=== PATIENT | male | born 1945 | race Caucasian/White ===

== ENCOUNTER 2017-07-15 19:00 | Observation (INO) | payer MEDICARE ==
[2017-07-15 20:10] LABS: Hematocrit 36 % (42-52); Hemoglobin 12.2 g/dl (14.0-18.0); Mean Corpuscular HGB Conc 34 g/dl (31-36); Mean Corpuscular Hemoglobin 30 pg (27-31); Mean Corpuscular Volume 89 fL (80-94); Mean Platelet Volume 9 um3 (7.4-10.4); Red Blood Count 4.05 10^6/ul (4.0-5.4); Red Cell Distribution Width 16 % (10.5-15); White Blood Count 7.1 10^3/ul (3.5-10.8)
[2017-07-15 20:39] LABS: Urine Bacteria Absent (Absent); Urine Bilirubin Negative (Negative); Urine Glucose 1+(50 mg/dL) (Negative); Urine Nitrite Negative (Negative)
[2017-07-15 20:43] LABS: BUN/Creatinine Ratio 18.5 (8-20); Calcium 8.9 mg/dL (8.6-10.3); EGFR African American 86.7 (>60); EGFR Non-African American 67.4 (>60); Globulin 2.7 g/dL (2-4); Potassium 4.1 mmol/L (3.5-5.0); Total Bilirubin 0.3 mg/dL (0.2-1.0); Total Protein 6.7 g/dL (6.4-8.9)
--- NOTE | 2017-07-15 21:02 | RAD ---
INDICATION: Slurred speech, confusion and fall COMPARISON: None. TECHNIQUE: Contiguous axial sections of the brain were obtained from the skull base to the vertex without contrast. FINDINGS: The ventricles, cisterns and sulci are within normal limits. There is mild periventricular and subcortical white matter hypoattenuation most consistent with chronic microvascular disease. At the left chaudhry radiata (image 19 of 32) adjacent to the left ventricle there is a 6 mm hypoattenuating focus. Otherwise the hernandez-white matter differentiation is adequately maintained and there is no sulcal effacement. No significant focal abnormality or mass effect is present. There is no evidence for intracranial hemorrhage. There is coarse atherosclerotic calcification of the left greater than right vertebral arteries as well as the bilateral petrous carotid arteries. No significant focal osseous abnormality is present. The visualized portion of the paranasal sinuses and mastoid air cells appear clear. IMPRESSION: CT findings are consistent with mild microvascular disease. A 6 mm hypoattenuating focus at the left chaudhry radiata could represent an age indeterminant focal infarction. The patient is exhibiting focal neurologic deficits further characterization can be made with MRI of the brain.
--- NOTE | 2017-07-15 21:17 | ED ---
Geno Valles Thomas, scribed for Edelmira Hernandez MD on 07/15/17 at 1936 . Neurological HPI - HPI Summary HPI Summary: The pt is a 71 y/o M presenting to the ED s/p an accidental fall that occurred today at 15:30. The patient was hammering a nail when he lost his balance and fell. The patient did not strike his head on the floor. Per , after the fall the patient was confused. Per , the patient seemed to have trouble articulating words. In the ED, the patient denies any pain. He is on Coumadin. PMHx includes A-Fib. - History of Current Complaint Chief Complaint: EDAltMentalStatus Stated Complaint: FALL/SLURRED SPEECH/HIGH BLOOD PRESSURE Time Seen by Provider: 07/15/17 19:21 Hx Obtained From: Patient Onset/Duration: Started hours ago - today at 15:30, Resolved Timing: Constant Current Severity: None Pain Intensity: 0 Pain Scale Used: 0-10 Numeric Character: Confusion Aggravating: Nothing Alleviating: Spontanious Resolution Associated Signs and Symptoms: Positive: Nothing - Aphasia, confusion, accidental fall; NEGATIVE: head trauma Related Hx: Coumadin - Allergy/Home Medications Allergies/Adverse Reactions: Allergies Allergy/AdvReac Type Severity Reaction Status Date / Time Codeine Allergy Rash Verified 07/15/17 19:08 PMH/Surg Hx/FS Hx/Imm Hx Previously Healthy: No Endocrine/Hematology History: Reports: Hx Diabetes Cardiovascular History: Reports: Hx Coronary Artery Disease Infectious Disease History: No Infectious Disease History: Denies: Traveled Outside the [place] in Last 30 Days - Family History Known Family History: Positive: Other - CVA - Social History Lives: With Family Alcohol Use: Occasionally Hx Tobacco Use: No Smoking Status (MU): Never Smoked Tobacco Review of Systems Negative: Fever Neurological: Other - Confusion, aphasia; NEGATIVE: head trauma All Other Systems Reviewed And Are Negative: Yes Physical Exam - Summary Physical Exam Summary: VITAL SIGNS: Reviewed. GENERAL: ~Patient is a well-developed and nourished male who is lying comfortable in the stretcher. Patient is not in any acute respiratory distress. HEAD AND FACE: No signs of trauma. No ecchymosis, hematomas or skull depressions. No sinus tenderness. EYES: PERRLA, EOMI x 2, No injected conjunctiva, no nystagmus. EARS: Hearing grossly intact. Ear canals and tympanic membranes are within normal limits. MOUTH: Oropharynx within normal limits. NECK: Supple, trachea is midline, no adenopathy, no JVD, no carotid bruit, no c- spine tenderness, neck with full ROM. CHEST: Symmetric, no tenderness at palpation LUNGS: Clear to auscultation bilaterally. No wheezing or crackles. CVS: Regular rate and rhythm. There is a 2/6 systolic murmur over the base. S1 and S2 present, no gallops appreciated. ABDOMEN: Soft, non-tender. No signs of distention. No rebound no guarding, and no masses palpated. Bowel sounds are normal. EXTREMITIES: FROM in all major joints, no edema, no cyanosis or clubbing. NEURO: Alert and oriented x 3. No acute neurological deficits. Speech is normal and follows commands. Coordination is normal in finger-nose test. No dysmetria. No nystagmus. SKIN: Dry and warm Triage Information Reviewed: Yes Vital Signs On Initial Exam: Initial Vitals Temp Pulse Resp BP Pulse Ox 98.5 F 64 18 173/92 99 07/15/17 19:04 07/15/17 19:04 07/15/17 19:04 07/15/17 19:04 07/15/17 19:04 Vital Signs Reviewed: Yes Diagnostics - Vital Signs Vital Signs Temp Pulse Resp BP Pulse Ox 07/15/17 19:04 98.5 F 64 18 173/92 99 - Laboratory Result Diagrams: 07/15/17 20:00 07/15/17 20:00 Lab Statement: Any lab studies that have been ordered have been reviewed, and results considered in the medical decision making process. - CT CT Brain CT Interpretation: Positive (See Comments) - CT findings are consistent with mild microvascular disease. A 6 mm hypoattenuating focus at the left chaudhry radiata could represent an age indeterminant focal infarction. The patient is exhibiting focal neurologic deficits further characterization can be made with MRI of the brain. ED physician has reviewed this report and agrees. GCS 15. CT Interpretation Completed By: Radiologist - EKG 20:09 Cardiac Rate: Bradycardia EKG Interpretation: 59 BPM. Normal axis. Noraml intervals. Nonspecific ST T- waves changes. Re-Evaluation - Re-Evaluation First Eval Re-Evaluation Time: 21:11 Change: Unchanged Comment: I informed the patient of the CT results and the plans for admission. Course/Dx - Course Assessment/Plan: The pt is a 71 y/o M presenting to the ED s/p an accidental fall that occurred today at 15:30. The patient was hammering a nail when he lost his balance and fell. The patient did not strike his head on the floor. Per , after the fall the patient was confused. Per , the patient seemed to have trouble articulating words. EKG and bloodwork were obtained in the ED. CT brain shows CT findings are consistent with mild microvascular disease. A 6 mm hypoattenuating focus at the left chaudhry radiata could represent an age indeterminant focal infarction. The patient has been stable in the emergency department. The neurological exam is unchanged from the original exam. The patient is will be admitted for a TIA. - Diagnoses Provider Diagnoses: TIA (transient ischemic attack) - Physician Notifications Discussed Care Of Patient With: Ashok Armendariz Time Discussed With Above Provider: 21:17 Instructed by Provider To: Admit As Inpatient Discharge - Discharge Plan Condition: Stable Disposition: ADMITTED TO [facility] Referrals: Can Ku MD [Primary Care Provider] - The documentation as recorded by the Geno cardenas Thomas accurately reflects the service I personally performed and the decisions made by me, Edelmira Hernandez MD.
[2017-07-15] MEDS ORDERED: Ondansetron INJ* 2 MG/ML VIAL IV PRN (21:47)
[2017-07-15] MEDS ORDERED: Acetaminophen TAB* 325 MG PO PRN (21:47)
[2017-07-15] MEDS ORDERED: Dextrose 50% Syringe 50 ML* 25 GM/50 ML SYRINGE IV PUSH PRN (21:49)
[2017-07-15] MEDS ORDERED: hydrALAZINE IV* 20 MG/ML VIAL IV SLOW PU PRN (21:58)
[2017-07-15] MEDS ORDERED: Warfarin TAB(*) 4 MG PO SCH (22:00)
[2017-07-15] MEDS ORDERED: Iodixanol* (CONTRAST) 320 MG/ML 100 ML SDV IV ONE (22:01)
--- NOTE | 2017-07-15 23:53 | HP ---
CC: Darlene [place] * HISTORY AND PHYSICAL: DATE OF ADMISSION: 07/15/17 PRIMARY CARE PROVIDER: Darlene [place]. ATTENDING PHYSICIAN WHILE IN THE HOSPITAL: Ashok Armendariz MD * (report dictated by Govind Sampson NP) CHIEF COMPLAINT: Difficulty with speech. CONSULTING NEUROLOGIST: Dr. Celis. HISTORY OF PRESENT ILLNESS: Mr. Encinas is a 71-year-old male patient, he has a history of CAD, aortic stenosis, history of diabetes, BPH, and also carries a history of atrial fibrillation. He comes into the emergency department today stating that he was working outside with his , he was hammering in a nail, he was bending over to do this and when he came upright, he started having difficulty with his speech. He did not know what he said, the words were on the tip of his tongue, he could not get them out. He knew this was happening. The states that he was saying several different languages and they were not making senses. He was not speaking in correct context. She did not notice a facial droop or weakness on one side. She denied him having any slurred speech. She says the speech was clear, it was nonsensical. The patient said that he did not have any visual changes. There were no reports again of that facial droop or left to right-sided weakness and he does state that over the last couple of days though, he has been having more difficulty with his gait, it has been more unsteady. He says the symptoms are now resolved. He lied down. When he came to, the symptoms had gone, but the was concerned that this could be something more serious, so she decided to bring him into the ER. There has been no reports of fevers or chills. He did in November of this year have aortic valve replacement due to aortic stenosis and a CABG for coronary artery disease. He is on warfarin for AFib and he has a history of diabetes and BPH. He was evaluated in the ED, there was concern for a TIA and we were asked to evaluate for admission. PAST MEDICAL HISTORY: Significant for: 1. CAD. 2. Aortic stenosis. 3. Diabetes. 4. BPH. 5. AFib. PAST SURGICAL HISTORY: He has an aortic valve replacement which is bovine and a CABG. MEDICATIONS: Home medications according to the list that he provided include: 1. Lisinopril 20 mg p.o. b.i.d. 2. Fluticasone 2 sprays both nares at bedtime. 3. Metformin 1000 mg p.o. b.i.d. 4. B12 of 1000 mcg p.o. daily. 5. Vitamin D3 of 2000 units p.o. daily. 6. Glipizide 5 mg p.o. daily. 7. Flomax 0.4 mg p.o. daily. 8. Celexa 20 mg daily. 9. Warfarin 4 mg on Tuesdays and . 10. Warfarin 8 mg on Friday, Friday, Friday, Friday, and Friday. 11. Lipitor 40 mg daily. 12. Lopressor 5 mg p.o. b.i.d. 13. Avodart 0.5 mg p.o. daily. 14. Aspirin 81 mg daily. ALLERGIES TO MEDICATIONS: Include CODEINE. FAMILY HISTORY: Mother had a history of CVA. Father was an alcoholic. SOCIAL HISTORY: He is a former smoker. He rarely drinks alcohol. Surrogate decision maker is his , Mariam. REVIEW OF SYSTEMS: There is no documented fever. He denied having any significant weight change. There was no double vision. No ear discharge, no rhinorrhea, no sore throat, and no thyroid enlargement. Denied having any chest pain. No orthopnea or nocturnal dyspnea. There is no abdominal pain. No nausea, no vomiting, no dysuria, no frequency, no seizure, no loss of consciousness, no pruritus, and no skin ulcerations. Review of 14 systems completed and all others negative. PHYSICAL EXAMINATION GENERAL: At this time Mr. Encinas is a 71-year-old male patient, he is sitting in the ER stretcher. He does not appear to be in any acute distress. VITAL SIGNS: Blood pressure 175/121 with a pulse of 58, respirations 18, O2 sat 97%, and his temperature was 98.5. HEENT: Head atraumatic and normocephalic. Eyes; EOMs are intact. Sclerae anicteric and not pale. NECK: Supple. Throat; oral mucosa appears to be moist. No oropharyngeal erythema. LUNGS: Clear to auscultation bilaterally. No wheezes, rales, or rhonchi. HEART: Sounds S1 and S2. Regular rate and rhythm. No murmurs, rubs, or gallops. ABDOMEN: Soft, flat, and nontender. Bowel sounds present. EXTREMITIES: Pulses were 2+ throughout. He is able to move all 4 extremities with 5/5 strength. NEUROLOGIC: He is awake, he is alert. Cranial nerves II through XII are intact. Xofndq-uh-jakd intact bilaterally. Hzbd-nz-sshq intact bilaterally. Speech was clear. Tongue was midline. He had 5/5 strength throughout. He had no gross focal deficits. He was awake, alert, and oriented x3. SKIN: Intact. LABORATORY DATA/DIAGNOSTIC STUDIES: Today reveal a WBC of 7.1, RBC of 4.05, hemoglobin of 12.2, hematocrit 36, platelet count 228,000. His INR was 2.70, PTT of 42.1. Sodium 139, potassium 4.1, chloride of 106, bicarb 28, BUN 20, creatinine 1.08, glucose 209, calcium 8.9, total bili 0.3, AST 15, ALT 11, alk phos 54, albumin of 4.0. He had trace ketones, trace leukocyte esterase, squamous epithelial cells were present, calcium oxalate crystals present, hyaline casts present, 1+ glucose. He had a brain CT obtained today which impression read: CT findings most consistent with mild microvascular disease, a 6 mm hypoattenuating focus of the left chaudhry radiata, could represent an age indeterminate focal infarct. The patient focal neurologic deficits. Further characteristic could be made with MRI of the brain. He had an EKG obtained today as well which showed a sinus bradycardia, rate of 59. No ST elevations. He had diffuse T-wave flattening. No previous EKG for comparison. Old medical records were reviewed. ASSESSMENT AND PLAN: Mr. Encinas is a 71-year-old male patient coming into the emergency department today with complaint of trouble with speech that lasted an hour that has now resolved. He will be admitted under observation status for: 1. Transient ischemic attack. Again, CT did show possible old stroke. We will get an MRI to further characterize this. I will get Dr. Celis involved. We will continue his warfarin and his aspirin that he has been taking along with statin therapy. We will get neuro checks every 2 hours, get a CTA of the head and neck. In addition to this, we also will get an echo with bubble study and place the patient on telemetry. He appears to be in sinus rhythm currently. 2. Coronary artery disease. Continue aspirin, statin, and beta anyi therapy. 3. Hypertension. Blood pressure right now is in the 190s. I would like to try to get that down to less than 180. I am going to give him some hydralazine p.r.n. and will continue his Lopressor. I am going to hold the lisinopril for the time being. 4. Aortic stenosis. Again at this point he had an aortic valve replacement. He will follow with his principal technical specialist. 5. Diabetes. He will be on lispro sliding scale. 6. Benign prostatic hypertrophy. Continue his Avodart and Flomax. 7. Atrial fibrillation. He is in sinus rhythm. Will continue his Coumadin as prescribed. 8. Code status full code. 9. Fluids, electrolytes, and nutrition. He can have a consistent carb diet. 10. DVT prophylaxis. He will continue the warfarin. TIME SEEN: On admission 60 minutes, greater than half the time spent face-to- face with the patient obtaining my history and physical, other half the time spent going over the plan of care with the patient and implementing the plan of care. I discussed plan of care with my attending, Dr. Armendariz; he is in agreement. GOVIND SAMPSON NP [id number]/CPS #: [id number] MTDD
[2017-07-16 05:09] LABS: Hematocrit 34 % (42-52); Hemoglobin 11.7 g/dl (14.0-18.0); Mean Corpuscular HGB Conc 34 g/dl (31-36); Mean Corpuscular Hemoglobin 30 pg (27-31); Mean Corpuscular Volume 88 fL (80-94); Mean Platelet Volume 8 um3 (7.4-10.4); Red Cell Distribution Width 16 % (10.5-15)
[2017-07-16 05:26] LABS: BUN/Creatinine Ratio 20.2 (8-20); Calcium 8.6 mg/dL (8.6-10.3); EGFR African American 108.4 (>60); EGFR Non-African American 84.3 (>60); HDL Cholesterol 36.3 mg/dL; Potassium 3.8 mmol/L (3.5-5.0)
[2017-07-16] MEDS: Insulin LISPRO* 1 UNITS UNIT SUBCUT SCH ×2 (07:19→12:02)
--- NOTE | 2017-07-16 08:23 | RAD ---
INDICATION: TIA COMPARISON: CT brain same date TECHNIQUE: Axial source images were acquired with coronal and sagittal reconstructions. CT angiographic technique was utilized with injection of 80 mL Visipaque 320. FINDINGS: Aortic arch: There are no CT angiogram abnormalities of the arch or the great vessels arising from the arch. Right carotid: The internal carotid artery, carotid bifurcation, extracranial portions of the internal carotid artery, carotid artery at the skull base, carotid siphon, and carotid termination appear patent. There are intimal calcifications of the carotid bifurcation, external portion of internal carotid artery, and carotid artery at the skull base to include the carotid siphon. There is an estimated 30% diameter stenosis near the origin the right internal carotid artery. Left carotid:The internal carotid artery, carotid bifurcation, extracranial portions of the internal carotid artery, carotid artery at the skull base, carotid siphon, and carotid termination appear patent. There are intimal calcifications of the carotid bifurcation, external portion of the internal carotid artery, and carotid artery at the skull base to include the carotid siphon. There is a mild origin stenosis of the left internal carotid artery in the 40-50% diameter range and a second stenosis 1.5 cm above the origin of the internal carotid artery also estimated to be 40-50%. Right middle and anterior cerebral arteries: There are no significant CT angiographic abnormalities of the middle or anterior cerebral arteries. Left middle and anterior cerebral arteries: There are no significant CT angiographic abnormalities of the middle or anterior cerebral arteries Right vertebral: The CT angiographic appearance of the vertebral artery is patent. There are intimal calcifications. Left vertebral: The CT angiographic appearance of the vertebral artery is patent. There are intimal calcifications. Basilar artery: The basilar artery and basilar tip appear normal. Posterior cerebral arteries: The distal distribution of the right posterior cerebral arteries normal. There are tendon, high-grade stenoses of the origin left posterior cerebral artery estimated to be in the 75% diameter range. The distribution of the posterior cerebral arteries otherwise normal. [place] of [place]: The CT angiographic appearance of the elem of [place] is normal. Source images show no evidence of mass or adenopathy within the neck. There are no focal brain parenchymal abnormalities or abnormal areas of enhancement. There is sternotomy. The lung apices are essentially clear IMPRESSION: 1. There are atherosclerotic changes involving both the anterior and posterior circulation with intimal calcifications and regularities. 2. Carotid bifurcation disease is noted above but there is no hemodynamically significant stenosis. 3. 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 CPT II Codes: 3100F PQRS
[2017-07-16] MEDS ORDERED: Tamsulosin CAP* 0.4 MG PO SCH (09:00)
[2017-07-16] MEDS ORDERED: Finasteride TAB* 5 MG PO SCH (09:00)
[2017-07-16] MEDS ORDERED: Metoprolol Tartrate TAB* 50 mg PO SCH (09:00)
[2017-07-16] MEDS ORDERED: Aspirin EC Low Dose* 81 MG TAB.EC PO SCH (09:00)
[2017-07-16] MEDS ORDERED: Citalopram TAB* 20 MG PO SCH (09:00)
[2017-07-16 10:28] LABS: TSH (Thyroid Stimulating Horm) 14.17 mcIU/mL (0.34-5.60)
[2017-07-16] MEDS ORDERED: Perflutren Lipid Microsphere* 3 ML VIAL ONE (10:28)
[2017-07-16 10:34] LABS: Free T4 0.56 ng/dL (0.61-1.12)
--- NOTE | 2017-07-16 11:42 | RAD ---
Indication: Transient ischemic attack. Sagittal and axial T1, axial T2, FLAIR, diffusion and susceptibility weighted images of the brain were obtained. Correlation is made with a CT of the brain done on 1117. Ventricular structures are midline. No midline shift is noted. The extra-axial spaces are unremarkable. There is central and cortical atrophy noted. No restriction of diffusion is noted. Periventricular signal abnormalities are noted scattered throughout the deep white matter. These may be oriented along the pericallosal radiation. These are nonspecific findings but may represent chronic ischemic White matter change although the possibility of a demyelinating process is not excluded. Clinical correlation is suggested. No evidence of susceptibility artifact from hemosiderin deposits are noted. Paranasal sinuses are clear. Mastoid air cells are otherwise unremarkable. IMPRESSION: Atrophy. Periventricular signal abnormalities which are oriented along the pericallosal fibers. These are nonspecific but may represent demyelinating process although small vessel ischemic disease is not excluded. No restriction of diffusion is noted to suggest acute infarct.
--- NOTE | 2017-07-16 12:11 | CONS ---
CC: Darlene [place] * CONSULTATION NOTE: DATE OF CONSULT: 07/16/17 CURRENT LOCATION: Room 433, bed 1. PRIMARY CARE PROVIDER: aDrlene Hamilton [place] REASON FOR CONSULTATION: Balance difficulty and speech changes. HISTORY OF PRESENT ILLNESS: Mr. Encinas is a 71-year-old gentleman from [place] who has a history of hypertension, hyperlipidemia, type 2 diabetes, atrial fibrillation, has a history of aortic stenosis and coronary artery disease, status post aortic valve replacement in November of 2016. At that time, he also had a 3-vessel CABG. He has been doing well. He had a bovine valve placed, but has been on Coumadin because of a history of paroxysmal atrial fibrillation. He states that he has not had any palpitation since the surgery. The surgery was uncomplicated. He has done well. He notes that since the surgery, he has had some difficulty with his balance at times, he will fall to one side or the other, but otherwise has no lasting effects. The balance issues are not associated with any lightheadedness or palpitations. Yesterday, he was outside working on his trailer when he suddenly fell forward. He did not hit his head, sustained no injuries. He had some weakness that he said was all over, not focal when he got up. His told him that his speech was garbled at times. He was speaking [place], but he was not making sense. This lasted for approximately 20 minutes and then resolved spontaneously by the time he came to the ER several hours later. The symptoms had resolved. He noted in the last week or so, headache in the left forehead that has been mild in nature, yesterday he had the same headache, but otherwise noted no vision changes, no hearing loss, no facial droop reported, no numbness or tingling in his face, no focal numbness, tingling, weakness in his arms or legs. He noted no palpitations or chest pain at the time. He has had no recent illnesses. No fevers, chills, nausea, vomiting, diarrhea, or constipation. He has otherwise been in his usual state of health. He was brought to the ER. CT of the head showed no acute bleeding. He does have some chronic white matter changes and there was a 6- mm hypoattenuating focus in the left chaudhry radiata, which represents an age- indeterminate focal infarct. MRI of the brain is pending. CT angiogram of the head is pending. Overnight, he has had no new issues. He feels fine. He is sitting and eating breakfast and has no complaints. PAST MEDICAL HISTORY: As noted. PAST SURGICAL HISTORY: Includes a right finger injury with skin graft when he was 16 and then the CABG and open heart surgery for aortic valve replacement in November of this year. MEDICATIONS AT HOME: 1. Lisinopril 20 mg b.i.d. 2. Fluticasone nasal spray. 3. Metformin 1000 mg p.o. b.i.d. 4. Vitamin B12 1000 mcg daily. 5. Vitamin D3 2000 units daily. 6. Glipizide 5 mg p.o. b.i.d. 7. Flomax 0.4 mg p.o. daily. 8. Citalopram 20 mg p.o. daily. 9. Warfarin 4 mg Friday and ; 8 mg Friday, Friday, Friday, Friday, Friday. 10. Lipitor 40 mg. 11. Metoprolol 50 mg p.o. b.i.d. 12. Aspirin 81 mg every day. 13. Dutasteride 0.4 mg p.o. daily. ALLERGIES: To CODEINE. FAMILY HISTORY: He had one sister out of 4 did had a stroke in the 30s. There is no family history of any clotting or bleeding disorders. He has had multiple family members with strokes in the past. 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 Lives with his . Smoked, but quit back in the . Occasionally has a drink; he has had one beer this year, not a heavy drinker. He denies any drug use. States that he is compliant with his medications. PHYSICAL EXAMINATION: Vital Signs: Temp is 98.2, pulse rate is 63, respiratory rate is 16, pulse ox is 98%, blood pressures have been in the high up 191 to 150s over 70s to 90s with the high of 121 at one reading last night. In general, he is a well-nourished, well-developed gentleman in no acute distress. He is sitting up on the side of his bed, eating breakfast. He is pleasant, well dressed, well groomed. HEENT: He is normocephalic, atraumatic. Sclerae are anicteric. Mucous membranes are moist. Oropharynx is clear. Nares are patent. Neck is supple. No thyromegaly. No carotid bruits. No meningismus. Chest: Clear to auscultation bilaterally. Cardiovascular: Regular rate and rhythm without murmurs. Abdomen: Nontender, nondistended. Extremities: No clubbing, cyanosis, or edema. Skin: Warm and dry without lesions. Neurologic Exam: He is awake, alert, and oriented x3. His speech is fluent. He is a [place] accent. His memory is intact to recent and remote events. There is no dysarthria noted. Cranial nerves II through XII. Pupils are equal, round, and reactive to light. Extraocular muscles are intact. Visual ace are full. Face sensation is intact. Face is with a very subtle left lower facial droop. His hearing is intact bilaterally. Tongue is midline. Palate raises symmetrically. Sternocleidomastoid and trapezius are intact. Motor Exam: He spontaneously moving all extremities antigravity 5/5 throughout. Tone and bulk are both normal. There is no drift. DTRs are 1+ and symmetric in the upper and lower extremities with equivocal Babinski's. Sensation is intact to light touch and pinprick throughout. No focal deficits. Finger-to- nose, rapid alternating movements and heel to kapoor are all normal without ataxia. He does have a very mild intention tremor in the upper extremities bilaterally. His Romberg is negative. Gait: He is walking without difficulty. Good stride. Good arm swing. DIAGNOSTIC STUDIES/LAB DATA: Lab work includes glucose of 121 this morning. Complete metabolic yesterday with glucose of 209, otherwise normal. Complete metabolic profile this morning with a BUN and creatinine of 20.2, glucose of 104. His CBC with diff, hemoglobin of 11.7, hematocrit of 34, INR yesterday of 2.70, INR this morning of 3.26, PTT of 43.1. Urine showed trace leukocyte esterase, absent bacteria, negative nitrite, 1+ glucose, hyaline casts present, calcium oxalate crystals present. ASSESSMENT AND PLAN: Mr. Encinas is a 71-year-old gentleman with a history of coronary artery disease and aortic stenosis, status post aortic valve replacement with a Bovine valve and 3-vessel coronary artery bypass graft in November of 2016. He has a history of atrial fibrillation. He has been Coumadin for that. He remains on Coumadin for the paroxysmal atrial fibrillation, has a history of hypertension, hyperlipidemia, diabetes, who presents to the hospital with acute onset of some what sounds like expressive aphasia, possibly some dysarthria as well, lasting for about 20 minutes and resolved, no further symptoms since admission. CT of the head shows possibility of a very small chronic versus acute infarct and some white matter disease. Otherwise, negative for any bleeding. CT angiogram pending. Echocardiogram pending. MRI pending. We will continue with his transient ischemic attack/stroke workup. Follow up his studies today. I will continue his Coumadin, unchanged for now. His goal INR per cardiovascular recommendations. Continue his statin with a goal LDL less than 70, his current LDL is 81. We will increase his dose. Continue his aspirin as well. Continue diabetes control and blood pressure control. He is a nonsmoker. We will monitor on telemetry for any evidence of arrhythmia. If his studies are normal, then he can likely be discharged today and I will follow him up in clinic in 4 to 6 weeks. We will follow up later today and make further recommendation if necessary. Thank you for the opportunity to participate in his care. [id number]/[facility] #: [id number] CARMELO
--- NOTE | 2017-07-16 12:20 | ECHO ---
Patient: NUNU NIEVES V [facility] Rec#: [id number] : 1945 Date: 07/16/2017 Age: 71y Weight: kg / NaN lbs Sex: M Room#: 433 Admit Date#: 07/15/2017 Type: Inpatient Referring: Govind Sampson NP Reading: Jossy Stanley MD Rn Urology: Shanell Gray [facility] Transthoracic Echocardiogram Indication: TIA BP: 166/77 HR: 68 Rhythm: NSR Findings History: CAD s/p CABGx3, s/p AV replacement( bovine),DM,a-fib,BPH. Technical Comments: The study is technically difficult. Definity used to enhance images. Left Ventricle: The left ventricular chamber size is decreased. Moderate concentric left ventricular hypertrophy is observed. There is normal left ventricular systolic function. The estimated ejection fraction is 55-60%. Ventricular septal wall motion has a post-operative appearance. The assessment of diastolic function is non-diagnostic. Left Atrium: The left atrium is moderately dilated. Right Ventricle: The right ventricular cavity size is normal. The right ventricular global systolic function is normal. Right Atrium: A patent foramen ovale is visualized. A patent foramen ovale is demonstrated by agitated contrast. With valsalva immediate and multiple bubbles cross. Aortic Valve: There is no evidence of aortic regurgitation. There is no evidence of aortic stenosis. The mean gradient of the aortic valve is 14.95 mmHg. The aortic valve area, by VTI's, is calculated at 1.5 cm2. Highest aortic valve velocity was acquired with Pedoff in apical position. A bovine bio-prosthetic aortic valve is present. The prosthetic aortic valve leaflets are normal. Mitral Valve: The mitral valve leaflets are mildly thickened. There is mild mitral regurgitation. There is no evidence of mitral stenosis. Tricuspid Valve: The tricuspid valve leaflets are normal. There is mild tricuspid regurgitation. There is evidence of mild pulmonary hypertension. There is no tricuspid stenosis. Pulmonic Valve: The pulmonic valve appears normal. There is trace to mild pulmonic regurgitation. There is no pulmonic stenosis. Pericardium: A pericardial fat pad is visualized. Aorta: There is mild dilatation of the ascending aorta. There is no dilatation of the aortic arch. There is no dilation of the aortic root. Pulmonary Artery: The main pulmonary artery appears normal. Venous: The venous system is not well visualized. Contrast: Definity was used to optimize study. 3 ml used. Intravenous contrast was used to enhance endocardial border definition. Intravenous agitated saline contrast was used to assess intracardiac shunting. Conclusions Moderate concentric left ventricular hypertrophy is observed. There is normal left ventricular wall motion and systolic function. The estimated ejection fraction is 55-60%. The right ventricular global systolic function is normal. A patent foramen ovale is demonstrated by agitated contrast, immediate and multiple bubbles cross with valsalva. A bovine bio-prosthetic aortic valve is present with good function. There is mild mitral regurgitation. There is mild tricuspid regurgitation. There is evidence of mild pulmonary hypertension: 38 mmHg. There is mild dilatation of the ascending aorta: 3.8 cm. Prior echos not available to compare. Measurements Name Value Normal Range RVIDd (AP) 2D 3.6 cm (0.9 - 2.6) RVDdMajor (2D) 4.2 cm (2.2 - 4.4) RAd ISD 4CH 5.9 cm (3.4 - 4.9) RA (A4C)W 3.9 cm (2.9 - 4.6) IVSd (2D) 1.9 cm (0.6 - 1) LVPWd (2D) 1.2 cm (0.6 - 1) LVIDd (2D) 3.1 cm (3.6 - 5.4) LVIDs (2D) 2.8 cm - LV FS (2D) 7 % (25 - 45) Aortic Annulus 2 cm (1.4 - 2.6) Ao root diameter (2D) 2.3 cm (2.1 - 3.5) Ascending Ao 3.8 cm (2.1 - 3.4) Aortic arch 2.4 cm (1.8 - 3.4) Descending Ao 0.5 cm - LA dimension (AP) 2D 5.2 cm (2.3 - 3.8) LAd ISD 4CH 6.9 cm (2.9 - 5.3) LA ISD 4CH W 4.4 cm (2.5 - 4.5) Name Value Normal Range LA ESV SP 4CH (A/L) 90 ml - LA ESV SP 2CH (A/L) 131 ml - LA ESV BP (A/L) 109 ml - LA ESV BP (A/L) index 52.51 ml/m2 - LA ESV SP 4CH (MOD) 84 ml - LA ESV SP 2CH (MOD) 126 ml - Name Value Normal Range MV E-wave Vmax 1.1 m/sec - MV deceleration time 225 msec - MV A-wave Vmax 0.8 m/sec - MV E:A ratio 1.3 ratio - LV septal e' Vmax 0.05 m/sec - LV lateral e' Vmax 0.13 m/sec - LV E:e' septal ratio 22 ratio - LV E:e' lateral ratio 8.46 ratio - Name Value Normal Range AV Vmax 2.6 m/sec - AV VTI 58.3 cm - AV peak gradient 27.9 mmHg - AV mean gradient 14.95 mmHg - LVOT diameter 2.1 cm - LVOT Vmax 1.1 m/sec - LVOT VTI 25.7 cm - LVOT peak gradient 4.44 mmHg - LVOT mean gradient 2.55 mmHg - TANMAY (continuity Vmax) 1.5 cm2 - TANMAY (continuity VTI) 1.5 cm2 - Name Value Normal Range MR Vmax 6.3 m/sec - MR VTI 231.8 cm - Name Value Normal Range TR Vmax 2.8 m/sec - TR peak gradient 30 mmHg - RAP 8 mmHg - RVSP 38 mmHg - Name Value Normal Range PV Vmax 1 m/sec - PV peak gradient 4.02 mmHg -
[2017-07-16 16:06] VITALS: BP 170/99
[2017-07-16] MEDS ORDERED: Lisinopril TAB* 10 MG PO ONE (16:08)
[2017-07-16] MEDS ORDERED: Warfarin TAB(*) 4 MG PO SCH (17:00)
[2017-07-16] MEDS ORDERED: Atorvastatin* 80 MG TAB PO SCH (21:00)
[2017-07-16] MEDS ORDERED: Atorvastatin* 40 MG TAB PO SCH (21:00)
--- NOTE | 2017-07-17 10:18 | DS ---
CC: Dr. Jaime Celis; Dr. Can Ku * DISCHARGE SUMMARY: DATE OF ADMISSION: 07/15/17 DATE OF DISCHARGE: 07/16/17 ADMISSION DIAGNOSES: Transient ischemic attack, coronary artery disease, aortic stenosis, diabetes, benign prostatic hypertrophy, atrial fibrillation. DISCHARGE DIAGNOSES: Transient ischemic attack, coronary artery disease, aortic stenosis, diabetes, benign prostatic hypertrophy, atrial fibrillation. HOSPITAL COURSE: The patient is a 71-year-old gentleman who presents to [facility] with a chief complaint of having difficulty speaking. Please see H and P for further details. The patient was admitted, had a CAT scan, which showed initial old stroke. Patient was seen in consult with Neurology. The patient did have further imaging, which showed no evidence of an acute stroke. The patient's symptoms resolved. The patient was stable for discharge home with close follow up with his PCP and Neurology in 4 to 6 weeks. The patient was agreeable with this plan. The patient will continue with his current regimen. PHYSICAL EXAMINATION: Physical exam on the date of discharge: Elderly gentleman sitting up in bed, in no acute distress. Vital Signs: Temperature 97.3 degrees, heart rate 62 beats per minute, respiratory rate 16 breaths per minute, pulse ox 96%, blood pressure 170/99. HEENT: Normocephalic, atraumatic. Pupils equal, round, and reactive to light. Moist mucus membranes. Neck: Supple. No JVD, bruits, palpable thyroid, or lymphadenopathy. Chest: Clear to auscultation and percussion bilaterally. Cardiovascular: S1, S2 appreciated. Abdominal exam: Positive bowel sounds in all four quadrants. Soft, nontender, nondistended. Extremities: No cyanosis, clubbing or edema; +2 pulses bilaterally. Neuro: Alert and oriented x3. Moves all extremities. Skin: No rash or abnormalities. LABORATORY STUDIES DONE WHILE IN THE HOSPITAL: 1. Brain CT 07/15/17, impression: CT apparently was consistent with mild microvascular disease and a 6 mm hypo-attenuation focus at the left chaudhry radiata, it could represent an age indeterminate local focal infarction. The patient is exhibiting focal neurological defects, further characterization can be made with MRI of the brain. 2. Head CTA 07/15/17, impression: There were atherosclerotic changes involving both the anterior and posterior circulation with interval calcification irregularities, carotid bifurcation disease is noted again but there is no hemodynamically significant stenosis. High-grade tandem stenosis involving the origin of the left posterior cerebral artery. 3. Transthoracic echocardiogram 07/15/17, impression: Moderate concentric left ventricular hypertrophy is observed. Normal left ventricular wall motion and systolic function. Estimated EF is 55% to 60%. Right ventricular global systolic function is normal. A patent foramen ovale was demonstrated by agitated contrast and multiple bubbles across with Valsalva. A bovine prosthetic aortic valve was present with good function. Mild mitral regurg and mild tricuspid regurg. Evidence of pulmonary hypertension, mild dilatation of the ascending aorta. Prior echoes are not available to compare. 4. Brain MRI, 07/16/17, impression: Atrophy, periventricular signal abnormalities which are oriented to the pericallosal fibers there, these are nonspecific but may represent demyelinating process although small vessel ischemic disease is not excluded. No shift of diffusion is noted to suggest acute infarct. DISCHARGE MEDICATIONS: 1. Lisinopril 20 mg twice daily. 2. Fluticasone 2 sprays both nares at bedtime. 3. Metformin 1000 mg twice daily. 4. Vitamin B12 of 1000 mcg daily. 5. Cholecalciferol 2000 units daily. 6. Glipizide 5 mg twice daily. 7. Flomax 0.4 mg daily. 8. Celexa 20 mg daily. 9. Coumadin 4 mg Friday and , 8 mg Friday, Friday, Friday, Friday, Friday. 10. Lipitor 40 mg daily. 11. Metoprolol tartrate 50 mg twice daily. 12. Dutasteride 0.5 mg daily. 13. Aspirin 81 mg daily. DISCHARGE PLAN: The patient to be discharged home. The patient to follow up with Neurology in 4 to 6 weeks and his PCP within a week. The patient should return to ED if he develops any worrisome symptoms regarding the high-grade stenosis seen on CTA. TIME SPENT: Over 40 minutes was spent on this discharge, more than 25 minutes of which spent in direct [id number] contact with the patient, evaluation, physical exam, counseling, and coordination of care. [id number]/[facility] #: [id number] CARMELO
== END 2017-07-16 18:07 | disposition home or self-care (01) ==
LOC: ED 19:00 → MEDTELE 21:43
PROVIDERS: ADMIT Hospitalist; ATTEND Internal Medicine
DX: G45.9 Transient cerebral ischemic attack, unspecified (principal); I25.10 Atherosclerotic heart disease of native coronary artery without angina pectoris; I10 Essential (primary) hypertension; I35.0 Nonrheumatic aortic (valve) stenosis; E11.9 Type 2 diabetes mellitus without complications; N40.0 Benign prostatic hyperplasia without lower urinary tract symptoms; I48.91 Unspecified atrial fibrillation; Z79.01 Long term (current) use of anticoagulants; Z79.84 Long term (current) use of oral hypoglycemic drugs; Z79.82 Long term (current) use of aspirin; Z87.891 Personal history of nicotine dependence; Z95.2 Presence of prosthetic heart valve; R00.1 Bradycardia, unspecified; I51.7 Cardiomegaly
CPT/HCPCS: 36415; 70450; 70496; 70498; 70551; 80048; 80053; 80061; 81003; 81015; 82607; 83036; 83090; 84439; 84443; 85025; 85610; 85730; 87086; 93005; 93306; 96374; 99284; A9270-GY; C8929; G0378; J0360; Q9967